=== PATIENT | male | born 1970 | race American Indian/Alaskan Native ===

== ENCOUNTER 2021-03-22 09:08 | Emergency (ER) | payer OTHER ==
[2021-03-22] MEDS ORDERED: LORazepam 1 MG TAB PO ONE (10:19)
--- NOTE | 2021-03-22 10:28 | Emergency Department Report ---
HPI - General Chief Complaint: Psych Time Seen by Provider: 03/22/21 10:05 - HPI HPI: 50-year-old male with no known past medical history presents complaining of severe depression. Patient states the symptoms have been ongoing for few weeks. Gotten worse and over the past few days. He is dealing with stress stemming from his relationship with his and other personal social issues. He denies suicidal ideation or homicidal ideation. When asked to clarify why he reportedly endorsed homicidal ideation in triage, the patient stated that he simply wanted to be seen by And thought that this would get him seen sooner. He denies that he ever had any thoughts of hurting himself or others. He also denies auditory or visual hallucinations. He does however report that he feels extremely hopeless and sad. He denies any physical symptoms or complaints. ED Past Medical Hx - Past Medical History Previous Medical History?: Yes Hx Arthritis: Yes Additional medical history: Hernia - Social History Smoking Status: Current Every Day Smoker Substance Use Type: Marijuana - Medications Home Medications: Home Medications Medication Instructions Recorded Confirmed Last Taken Type FLUoxetine [PROzac] 20 mg PO QDAY 30 Days #30 capsule 03/22/21 Unknown Rx hydrOXYzine PAMOATE [Vistaril] 25 mg PO BID 30 Days #60 capsule 03/22/21 Unknown Rx traZODone [Desyrel] 50 mg PO QHS 30 Days #30 tab 03/22/21 Unknown Rx ED Review of Systems ROS: Stated complaint: NO SLEEP Other details as noted in HPI Constitutional: denies: chills, fever Eyes: denies: eye pain, vision change ENT: denies: throat pain, congestion Respiratory: denies: cough, shortness of breath Cardiovascular: denies: chest pain, palpitations Gastrointestinal: denies: abdominal pain, nausea, vomiting Genitourinary: denies: dysuria, frequency Musculoskeletal: denies: back pain, myalgia Skin: denies: rash Psychiatric: anxiety, depression. denies: auditory hallucinations, visual hallucinations, homicidal thoughts, suicidal thoughts Physical Exam - Physical Exam Vital Signs: Vital Signs 03/22/21 09:23 Temperature 98.7 F Pulse Rate 83 Respiratory 20 Rate Blood Pressure 160/107 O2 Sat by Pulse 100 Oximetry Physical Exam: GENERAL: Well developed and well nourished. No acute distress. Tearful HEENT: Normocephalic. No obvious signs of trauma. Moist mucous membranes. EYES: Extraocular movements are intact. NECK: Supple. Trachea is midline. LUNGS: Nonlabored breathing. Equal chest rise bilaterally. Clear to auscultation bilaterally. HEART/CARDIOVASCULAR: Regular rate and rhythm. No murmurs or rubs. VASCULAR: Cap refill < 2 seconds ABDOMEN: Abdomen is soft and nondistended. There is no significant tenderness, guarding or rebound. SKIN: Skin is warm and dry NEURO: Patient is awake, alert, and oriented. carpenter's assistant II-XII grossly intact. No focal deficits. Normal motor and sensory exam throughout. Normal speech. MUSCULOSKELETAL: No obvious deformities. No significant tenderness. ED Course Vital Signs 03/22/21 09:23 Temperature 98.7 F Pulse Rate 83 Respiratory 20 Rate Blood Pressure 160/107 O2 Sat by Pulse 100 Oximetry ED Medical Decision Making - Lab Data Result diagrams: 03/22/21 09:38 03/22/21 09:38 - Medical Decision Making 50-year-old male presenting with worsening anxiety and depression related to several social stressors. Patient initially stated that he had thoughts of hurting other people but later clarified that he only stated this because he wanted to be seen by a doctor faster. He denies SI/HI to me. He also denies auditory or visual hallucinations. He denies physical symptoms or complaints of any kind. He is afebrile with normal vital signs other than elevated blood pressure. We will send a full set of medical clearance labs and have the patient evaluated by the mental health/psychiatry team to determine the best disposition for this patient. Labs have resulted and the patient is medically cleared for psychiatric evaluation and placement. Patient seen and started on new meds by psych, cleared for discharge and sent home on 03/23/2021 with outpatient resources for follow up. Critical care attestation.: If time is entered above; I have spent that time in minutes in the direct care of this critically ill patient, excluding procedure time. ED Disposition Clinical Impression: Major depression, Psychosis Disposition: DC-01 TO HOME OR SELFCARE Is pt being admited?: No Condition: Stable Instructions: Major Depressive Disorder, Adult, Psychosis Additional Instructions: Professional and Agency Contacts To help [facility](03/04) [place] Crisis Line: Suicide Prevention Line: Crisis Text Line: Text START to 864007 Emergency: 911 Outpatient COMM[facility] Behavioral Health Resources: DEKALB: [facility] [address] [place], [place] [address] QUYEN: [facility] [address] [place] [address] ALICIA: [facility] - [address] [place] [address] Monday thru Monday - 8am - 5pm OMENA: [facility] Address: [address], [place] [address] AMA: [facility] Address: [address] [place] [address] Monday thru Monday- 7am-2pm [facility] Address: [address] [place] [address] Monday thru Monday: 8:30AM-5PM Prescriptions: traZODone [Desyrel] 50 mg PO QHS 30 Days #30 tab FLUoxetine [PROzac] 20 mg PO QDAY 30 Days #30 capsule hydrOXYzine PAMOATE [Vistaril] 25 mg PO BID 30 Days #60 capsule Referrals: [facility] [Outside] - 3-5 Days [facility]IMARY [facility], [Primary Care Provider] - 3-5 Days
[2021-03-22 10:32] LABS: Basophils % (Auto) 0.6 % (0.0-1.8); Eosinophils # (Auto) 0.1 K/mm3 (0.0-0.4); Eosinophils % (Auto) 0.9 % (0.0-4.3); Hematocrit 45.1 % (35.5-45.6); Hemoglobin 14.6 gm/dl (11.8-15.2); Lymphocytes # (Auto) 1.9 K/mm3 (1.2-5.4); Lymphocytes % (Auto) 25.3 % (13.4-35.0); Mean Corpuscular HGB Conc 32 % (32-34); Mean Corpuscular Volume 86 fl (84-94); Monocytes # (Auto) 0.6 K/mm3 (0.0-0.8); Monocytes % (Auto) 7.6 % (0.0-7.3); Platelet Count 228 K/mm3 (140-440); Red Blood Count 5.24 M/mm3 (3.65-5.03); Red Cell Distribution Width 14.1 % (13.2-15.2)
--- NOTE | 2021-03-22 11:23 | Consultation ---
History of Present Illness - Reason for Consult Consult date: 03/22/21 Reason for consult: suicidal ideation - History of Present Psychiatric Illness Per Ed Note: 50-year-old male with no known past medical history presents complaining of severe depression. Patient states the symptoms have been ongoing for few weeks. Gotten worse and over the past few days. He is dealing with stress stemming from his relationship with his and other personal social issues. He denies suicidal ideation or homicidal ideation. When asked to clarify why he reportedly endorsed homicidal ideation in triage, the patient stated that he simply wanted to be seen by And thought that this would get him seen sooner. He denies that he ever had any thoughts of hurting himself or others. He also denies auditory or visual hallucinations. He does however report that he feels extremely hopeless and sad. He denies any physical symptoms or complaints. Travon Lee is a 50 year old male, disabled with no prior psychiatric diagnosis presents to the ED for severe depression. In my interview with the patient, he was tearful. The patient reports that he has being depressed for a several years now. He reports symptoms as being sad most of the time, anger, irritability, being overwhelmed and hopelessness. The patient reports recent stressors as issues " She has always cheated on me and ripping me off. I just want to get out of the marriage." Patient reports he smokes marijuana everyday to cope with stress. Patient denies any current suicidal homicidal ideation, when asked if he previously endorsed HI he states " I said that so I can see a doctor, I can't do this by myself I need help." The patient denies any hallucinations. PAST PSYCHIATRIC HISTORY: Diagnoses: Denies Suicide attempts or Self-harm behavior: Denies Prior psychiatric hospitalizations: Denies Substance Abuse history: Denies Previous psychiatric medications tried: Denies Outpatient treatment: Denies PAST MEDICAL HISTORY: None reported or document Family Psychiatric History: None reported or documented SOCIAL HISTORY Marital Status: Living Arrangements: Lives with Employment Status: Disabled Access to guns/weapons: Denies Education: 6 years college History of Abuse: Denies Legal History: Denies REVIEW OF SYSTEMS Constitutional: Negative for weight loss ENT: Negative for stridor Respiratory: Negative for cough or hemoptysis All other systems reviewed and are negative MENTAL STATUS EXAMINATION General Appearance and Behavior: Age appropriate, wearing appropriate clothes, cooperative, polite with questioning, fair eye contact, calm Cooperation: cooperative Psychomotor Behavior: Psychomotor normal Mood: "Depressed" Affect and affective range: congruent with stated mood Thought Process: goal directed Thought Content: Denies SI Speech: Normal volume, Regular rate and rhythm Suicidal Ideation: Denies Homicidal Ideation: Denies hallucination: Denies Delusions: None elicited Impulse Control: Intact Insight and Judgment: Limited Memory: Intact Attention:Distractible Orientation: Alert and oriented Diagnoses: Major depressive Disorder, Single episode without psychotic features- 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 Please contact with any questions and/or concerns. Thank you for the consult. Case staffed with Dr. Boyd Medications and Allergies Allergies Allergy/AdvReac Type Severity Reaction Status Date / Time No Known Allergies Allergy Unverified 03/22/21 09:26 Mental Status Exam - Vital signs Last Vital Signs Temp 98.7 F 03/22/21 09:23 Pulse 83 03/22/21 09:23 Resp 20 03/22/21 09:23 BP 160/107 03/22/21 09:23 Pulse Ox 100 03/22/21 09:23 Results Result Diagrams: 03/22/21 09:38 Abnormal lab results 03/22/21 03/22/21 03/22/21 Range/Units 09:38 09:38 09:38 RBC 5.24 H (3.65-5.03) M/mm3 Desha % (Auto) 7.6 H (0.0-7.3) % Salicylates < 0.3 L (2.8-20.0) mg/dL Acetaminophen 5.0 L (10.0-30.0) ug/mL All other labs normal.
[2021-03-22 11:34] LABS: Alanine Aminotransferase 13 units/L (7-56); Albumin 4.5 g/dL (3.9-5); BUN/Creatinine Ratio 15; Blood Urea Nitrogen 16 mg/dL (9-20); Calcium 9.3 mg/dL (8.4-10.2); Hemolysis Index 4
[2021-03-22] MEDS: FLUoxetine 20 MG CAP PO SCH (13:00)
[2021-03-22] MEDS: hydrOXYzine PAMOATE 25 MG CAP PO SCH ×2 (13:00→22:36)
[2021-03-22 13:24] LABS: Amphetamine Screen,Urine PRESUMPTIVE NEGATIVE; Benzodiazepines Screen,Urine PRESUMPTIVE NEGATIVE; Bilirubin,Urine NEG (Negative); Blood,Urine SM (Negative); Cannabinoid Screen,Urine PRESUMPTIVE POSITIVE; Cocaine Screen,Urine PRESUMPTIVE NEGATIVE; Color,Urine Yellow (Yellow); Methadone Screen,Urine PRESUMPTIVE NEGATIVE; Mucus,Urine FEW /HPF; Opiate Screen,Urine PRESUMPTIVE NEGATIVE; Protein,Urine <15 mg/dL mg/dL (Negative); Urobilinogen,Urine < 2.0 mg/dL (<2.0)
[2021-03-22] MEDS ORDERED: traZODone 50 MG TAB PO SCH (22:00)
[2021-03-23 09:21] VITALS: BP 127/77
--- NOTE | 2021-03-23 09:26 | Progress Note ---
Subjective - Reason for Consult Consult date: 03/23/21 Reason for consult: Psych evaluation - Chief Complaint Chief complaint: The patient was seen this morning. He reports feeling a lot better, states depression is improving. He states mood as "calm." The patient denies any current suicidal/homicidal ideation and denies hallucinations. Per nurse, the patient had a quiet night. No complain. REVIEW OF SYSTEMS Constitutional: Negative for weight loss ENT: Negative for stridor Respiratory: Negative for cough or hemoptysis All other systems reviewed and are negative MENTAL STATUS EXAMINATION General Appearance and Behavior: Age appropriate, wearing appropriate clothes, cooperative, polite with questioning, fair eye contact, calm Cooperation: cooperative Psychomotor Behavior: Psychomotor normal Mood: "calm" Affect and affective range: congruent with stated mood Thought Process: goal directed Thought Content: Denies SI Speech: Normal volume, Regular rate and rhythm Suicidal Ideation: Denies Homicidal Ideation: Denies hallucination: Denies Delusions: None elicited Impulse Control: Intact Insight and Judgment: Limited Memory: Intact Attention:Distractible Orientation: Alert and oriented Diagnoses: Major depressive Disorder, 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 BIG 6 DEALER: Per medical team DISPOSITION: Do not recommend acute psychiatric inpatient treatment Will sign off. The patient understands that if suicidal ideas, homicidal ideas, or any endangering thoughts/behaviors arise, they should immediately seek emergent assistance including but not limited to crisis hotline and emergency room. Follow up with psychiatric out-patient within 7 days or sooner. Please contact with any questions and/or concerns. Case staffed with Dr. Boyd Medications and Allergies Mental Status Exam - Vital signs Last Vital Signs Temp 97.7 F 03/23/21 01:28 Pulse 83 03/23/21 07:53 Resp 16 03/23/21 01:28 BP 127/77 03/23/21 07:53 Pulse Ox 100 03/23/21 07:53
[2021-03-23] MEDS: hydrOXYzine PAMOATE 25 MG CAP PO SCH (10:25)
[2021-03-23] MEDS: FLUoxetine 20 MG CAP PO SCH (10:25)
== END 2021-03-23 11:00 | disposition home or self-care (01) ==
LOC: EEVIPCON 09:08 → ED 09:08
DX: F32.9 Major depressive disorder, single episode, unspecified (principal); F29 Unspecified psychosis not due to a substance or known physiological condition; G47.00 Insomnia, unspecified; F41.9 Anxiety disorder, unspecified; M19.90 Unspecified osteoarthritis, unspecified site; F17.290 Nicotine dependence, other tobacco product, uncomplicated; Z20.822 Contact with and (suspected) exposure to COVID-19
CPT/HCPCS: 36415; 80053; 80307; 81001; 85025; 99284; Q0177; U0003; 80320; G0480

== ENCOUNTER 2022-02-16 10:30 | Emergency (ER) | payer OTHER ==
[2022-02-16] MEDS ORDERED: FAMOTIDINE 20 MG/2 ML INJ IV ONE (11:44)
[2022-02-16] MEDS ORDERED: SODIUM CHLORIDE 0.9% 1000 ML 1,000 ML IV ONE (11:44)
[2022-02-16] MEDS ORDERED: predniSONE 20 MG TAB PO ONE (11:44)
[2022-02-16] MEDS ORDERED: MORPHINE 4 MG/1 ML INJ IV ONE (11:44)
[2022-02-16] MEDS ORDERED: ONDANSETRON 4 MG/2 ML INJ IV ONE (11:44)
--- NOTE | 2022-02-16 11:49 | Emergency Department Report ---
ED Abdominal Pain HPI - General Chief Complaint: Abdominal Pain Stated Complaint: ABD PAIN Time Seen by Provider: 02/16/22 11:30 Source: patient, EMS Mode of arrival: Stretcher Limitations: No Limitations - History of Present Illness Initial Comments: Patient is a 51-year-old male here with complaint of abdominal pain and left leg pain and buttock pain. Patient reports that he has had a history of gastritis in the past he denies any other past medical history but think he has "radiculopathy arthritis" patient states that his abdominal pain has resolved but earlier he noted left lower quadrant and periumbilical pain. He had some nausea and dry heaves but denies vomiting he also states he had a loose stools after not being able to have a bowel movement he denies any fevers chills. Patient denies any lumbar spinal pain he denies any saddle anesthesia he does not currently have any numbness tingling or weakness in his extremities. - Related Data Previous Rx's Medication Instructions Recorded Last Taken Type FLUoxetine [PROzac] 20 mg PO QDAY 30 Days #30 capsule 03/22/21 Unknown Rx hydrOXYzine PAMOATE [Vistaril] 25 mg PO BID 30 Days #60 capsule 03/22/21 Unknown Rx traZODone [Desyrel] 50 mg PO QHS 30 Days #30 tab 03/22/21 Unknown Rx Doxycycline Hyclate [Doxycycline 100 mg PO Q12HR 7 Days #14 tab 02/16/22 Unknown Rx Hyclate TAB] Famotidine [Pepcid] 40 mg PO QHS 30 Days #30 02/16/22 Unknown Rx Tamsulosin [Flomax] 0.4 mg PO QDAY 14 Days #14 cap 02/16/22 Unknown Rx predniSONE [Deltasone] 50 mg PO QDAY 3 Days #3 tab 02/16/22 Unknown Rx Allergies Allergy/AdvReac Type Severity Reaction Status Date / Time No Known Allergies Allergy Verified 02/16/22 10:36 ED Review of Systems ROS: Stated complaint: ABD PAIN Other details as noted in HPI Constitutional: denies: chills, fever Eyes: denies: eye pain, eye discharge, vision change ENT: denies: ear pain, throat pain Respiratory: denies: cough, shortness of breath, wheezing Cardiovascular: denies: chest pain, palpitations Endocrine: no symptoms reported Gastrointestinal: abdominal pain, nausea, diarrhea, constipation. denies: vomiting Genitourinary: denies: urgency, dysuria Musculoskeletal: denies: back pain, joint swelling, arthralgia Skin: denies: rash, lesions Neurological: denies: headache, weakness, numbness, paresthesias Psychiatric: denies: anxiety, depression Hematological/Lymphatic: denies: easy bleeding, easy bruising ED Past Medical Hx - Past Medical History Hx Arthritis: Yes Hx Tuberculosis: No Additional medical history: Hernia, gastitis - Social History Smoking Status: Current Every Day Smoker Substance Use Type: None - Medications Home Medications: Home Medications Medication Instructions Recorded Confirmed Last Taken Type FLUoxetine [PROzac] 20 mg PO QDAY 30 Days #30 capsule 03/22/21 Unknown Rx hydrOXYzine PAMOATE [Vistaril] 25 mg PO BID 30 Days #60 capsule 03/22/21 Unknown Rx traZODone [Desyrel] 50 mg PO QHS 30 Days #30 tab 03/22/21 Unknown Rx Doxycycline Hyclate [Doxycycline 100 mg PO Q12HR 7 Days #14 tab 02/16/22 Unknown Rx Hyclate TAB] Famotidine [Pepcid] 40 mg PO QHS 30 Days #30 02/16/22 Unknown Rx Tamsulosin [Flomax] 0.4 mg PO QDAY 14 Days #14 cap 02/16/22 Unknown Rx predniSONE [Deltasone] 50 mg PO QDAY 3 Days #3 tab 02/16/22 Unknown Rx ED Physical Exam - General Limitations: No Limitations General appearance: alert, in no apparent distress - Head Head exam: Present: atraumatic, normocephalic - Eye Eye exam: Present: normal appearance - ENT ENT exam: Present: mucous membranes moist - Neck Neck exam: Present: normal inspection - Respiratory Respiratory exam: Present: normal lung sounds bilaterally. Absent: respiratory distress - Cardiovascular Cardiovascular Exam: Present: regular rate, normal rhythm. Absent: systolic murmur, diastolic murmur, rubs, gallop - GI/Abdominal GI/Abdominal exam: Present: soft, tenderness (periumbilical), normal bowel sounds - Rectal Rectal exam: Present: deferred - Extremities Exam Extremities exam: Present: normal inspection - Back Exam Back exam: Present: normal inspection. Absent: CVA tenderness (R), CVA tenderness (L), muscle spasm, paraspinal tenderness, vertebral tenderness - Neurological Exam Neurological exam: Present: alert, oriented X3, normal gait. Absent: motor sensory deficit - Psychiatric Psychiatric exam: Present: normal affect, normal mood - Skin Skin exam: Present: warm, dry, intact, normal color. Absent: rash ED Course Vital Signs 02/16/22 02/16/22 02/16/22 10:34 10:59 11:01 Temperature 97.5 F L Pulse Rate 87 59 L Respiratory 17 Rate Blood Pressure Blood Pressure 152/80 [Left] O2 Sat by Pulse 98 Oximetry 02/16/22 02/16/22 02/16/22 11:02 12:06 12:07 Temperature Pulse Rate 69 69 Respiratory 15 15 15 Rate Blood Pressure 154/86 Blood Pressure 154/86 [Left] O2 Sat by Pulse 100 100 100 Oximetry - Reevaluation(s) Reevaluation #1: 02/16/22 13:39 Patient's labs are notable for hematuria. I discussed with patient and discussed the possibility that he may have a renal stone. Patient is offered a CT scan of the abdomen pelvis which she does not wish to stay for. He request that he be treated for possible STIs and received medication for possible renal stone. I will also provide patient with referrals to neurosurgery, GI, primary care. ED Medical Decision Making - Lab Data Result diagrams: 02/16/22 12:36 02/16/22 12:36 - EKG Data -: EKG Interpreted by Me EKG shows normal: sinus rhythm Rate: normal - EKG Data When compared to previous EKG there are: previous EKG unavailable Interpretation: normal EKG - Medical Decision Making Patient is a 51-year-old male with reported history of gastritis here with complaint of abdominal pain as well as likely left lower extremity sciatica. Patient currently does not have any abdominal pain but does note that his left leg hurts. Differential includes gastritis, diverticulitis, sciatica. I offered patient CT imaging of the abdomen and pelvis but at this time patient is refusing. He does request pain control. Plan to give Pepcid, pain control, steroids and will reassess. If patient feels improved and desires discharge will discharge with close follow-up with GI and primary care. Critical care attestation.: If time is entered above; I have spent that time in minutes in the direct care of this critically ill patient, excluding procedure time. ED Disposition Clinical Impression: Sciatica, Gastritis, Abdominal pain, Hematuria Disposition: 01 HOME / SELF CARE / HOMELESS Is pt being admited?: No Does the pt Need Aspirin: No Condition: Stable Instructions: Gastritis, Adult, [id number], Abdominal Pain, Adult, [id number], Sciatica, [id number], Hematuria, Adult Prescriptions: Famotidine [Pepcid] 40 mg PO QHS 30 Days #30 predniSONE [Deltasone] 50 mg PO QDAY 3 Days #3 tab Doxycycline Hyclate [Doxycycline Hyclate TAB] 100 mg PO Q12HR 7 Days #14 tab Tamsulosin [Flomax] 0.4 mg PO QDAY 14 Days #14 cap Referrals: [facility] [Other] - 3-5 Days TAMIKO ROGERS MD [Staff Physician] - 3-5 Days (If you need a primary care doctor) SONIDO HARDIN MD [Staff Physician] - as needed (If you need a grinder) JUAN SULLIVAN MD [Staff Physician] - as needed (For your blood in urine and possible kidney stones) JARON MALDONADO II, MD [Staff Physician] - as needed (Neurosurgery as needed for your sciatica) Time of Disposition: 13:52
[2022-02-16 12:04] LABS: Bilirubin,Urine Negative (Negative); Blood,Urine Large (Negative); Color,Urine Yellow (Yellow)
[2022-02-16 12:05] LABS: Protein,Urine <15 mg/dL mg/dL (Negative)
[2022-02-16 12:07] VITALS: BP 154/86
[2022-02-16 12:13] LABS: Mucus,Urine FEW /HPF
[2022-02-16 12:57] LABS: Basophils # (Auto) 0.1 K/mm3 (0.0-0.1); Basophils % (Auto) 0.5 % (0.0-1.8); Eosinophils % (Auto) 0.3 % (0.0-4.3); Hematocrit 43.8 % (35.5-45.6); Hemoglobin 13.9 gm/dl (11.8-15.2); Lymphocytes # (Auto) 1.3 K/mm3 (1.2-5.4); Lymphocytes % (Auto) 10.9 % (13.4-35.0); Mean Corpuscular HGB Conc 32 % (32-34); Mean Corpuscular Volume 86 fl (84-94); Monocytes # (Auto) 0.9 K/mm3 (0.0-0.8); Monocytes % (Auto) 7.9 % (0.0-7.3); Platelet Count 222 K/mm3 (140-440); Red Blood Count 5.11 M/mm3 (3.65-5.03); Red Cell Distribution Width 14.1 % (13.2-15.2)
[2022-02-16 13:18] LABS: Alanine Aminotransferase 19 units/L (7-56); Albumin 4.7 g/dL (3.9-5); BUN/Creatinine Ratio 12; Bilirubin,Direct < 0.2 mg/dL (0-0.2); Blood Urea Nitrogen 14 mg/dL (9-20); Calcium 9.6 mg/dL (8.4-10.2); Hemolysis Index 14
[2022-02-16] MEDS ORDERED: LIDOCAINE-MPF (1%) 10 MG/1 ML VIAL 5 ML INFILTRATI ONE (13:35)
--- NOTE | 2022-02-17 12:10 | Electrocardiograph Report ---
[facility] Test Date: 2022-02-16 Test Time: 11:39:11 Pat Name: BYRON VILLARREAL Department: Room: Gender: M Automobile Accessories Salesperson: GILES : 1970 Requested By: SANDRA DANIELSON Order Number: [id number] Reading MD: Tony Mora Measurements Intervals [place] Rate: 61 P: 38 CO: 161 QRS: 76 QRSD: 77 T: 60 QT: 405 QTc: 408 Interpretive Statements Sinus rhythm No previous ECG available for comparison Electronically Signed On 02-17-2022 12:10:00 EDT by Tony Mora
== END 2022-02-16 14:12 | disposition home or self-care (01) ==
LOC: ED 10:30
DX: M54.30 Sciatica, unspecified side (principal); K29.70 Gastritis, unspecified, without bleeding; R10.9 Unspecified abdominal pain; R31.9 Hematuria, unspecified; F17.200 Nicotine dependence, unspecified, uncomplicated
CPT/HCPCS: 36415; 80048; 80076; 81001; 82962; 83690; 84484; 85025; 93005; 96361; 96372; 96374; 96375; 99284; J0696; J2270; J2405; J3490; J7030

== ENCOUNTER 2022-04-22 08:14 | Emergency (ER) | payer OTHER ==
[2022-04-22 08:21] VITALS: BP 147/100
--- NOTE | 2022-04-22 09:43 | XRay Report ---
RIGHT FINGERS 3 VIEWS INDICATION: possible fracture on index finger. COMPARISON: None. IMPRESSION: 3 views of the right index finger are presented. No acute osseous abnormality or joint pathology is detected. The soft tissues are unremarkable. Signer Name: Crescencio Pereira Jr, MD Signed: 04/22/2022 9:39 AM Workstation Name: [id number]
== END 2022-04-22 23:00 | disposition left against medical advice (07) ==
LOC: ED 08:14
DX: S63.259A Unspecified dislocation of unspecified finger, initial encounter (principal); Z53.21 Procedure and treatment not carried out due to patient leaving prior to being seen by health care provider; X58.XXXA Exposure to other specified factors, initial encounter; Y93.89 Activity, other specified; Y92.89 Other specified places as the place of occurrence of the external cause; Y99.8 Other external cause status

== ENCOUNTER 2022-04-23 10:39 | Emergency (ER) | payer OTHER ==
[2022-04-23 11:05] VITALS: BP 164/93
== END 2022-04-24 11:19 | disposition left against medical advice (07) ==
LOC: ED 10:39
DX: S60.940A Unspecified superficial injury of right index finger, initial encounter (principal); Z53.21 Procedure and treatment not carried out due to patient leaving prior to being seen by health care provider; X58.XXXA Exposure to other specified factors, initial encounter; Y93.89 Activity, other specified; Y92.89 Other specified places as the place of occurrence of the external cause; Y99.8 Other external cause status

== ENCOUNTER 2022-04-26 06:27 | Emergency (ER) | payer OTHER ==
[2022-04-26 07:15] VITALS: BP 158/98
--- NOTE | 2022-04-26 10:26 | XRay Report ---
Right hand-3 views INDICATION: can not extend r index finger at PIP. COMPARISON: Right index finger series-3 views IMPRESSION: Questionable cortical irregularity along the posterior aspect of the index metacarpal he ad best seen on the lateral view with mild overlying soft tissue swelling. The index finger is in par tial flexion on all of the images. No significant DJD. Consider follow-up MRI for further evaluation to exclude underlying tendon or ligament injury. Signer Name: Yariel Queen MD Signed: 04/26/2022 10:22 AM Workstation Name: [email or web address]
--- NOTE | 2022-04-26 10:33 | Emergency Department Report ---
ED Recheck HPI - General Chief Complaint: Extremity Injury, Upper Stated Complaint: DISLOCATED FINGER Time Seen by Provider: 04/26/22 08:37 Source: patient Mode of arrival: Ambulatory Limitations: No Limitations - Related Data Previous Rx's Medication Instructions Recorded Last Taken Type FLUoxetine [PROzac] 20 mg PO QDAY 30 Days #30 capsule 03/22/21 Unknown Rx hydrOXYzine PAMOATE [Vistaril] 25 mg PO BID 30 Days #60 capsule 03/22/21 Unknown Rx traZODone [Desyrel] 50 mg PO QHS 30 Days #30 tab 03/22/21 Unknown Rx Doxycycline Hyclate [Doxycycline 100 mg PO Q12HR 7 Days #14 tab 02/16/22 Unknown Rx Hyclate TAB] Famotidine [Pepcid] 40 mg PO QHS 30 Days #30 02/16/22 Unknown Rx Tamsulosin [Flomax] 0.4 mg PO QDAY 14 Days #14 cap 02/16/22 Unknown Rx predniSONE [Deltasone] 50 mg PO QDAY 3 Days #3 tab 02/16/22 Unknown Rx Allergies Allergy/AdvReac Type Severity Reaction Status Date / Time No Known Allergies Allergy Verified 02/16/22 10:36 ED Review of Systems ROS: Stated complaint: DISLOCATED FINGER Other details as noted in HPI Comment: All other systems reviewed and negative ED Past Medical Hx - Past Medical History Previous Medical History?: Yes Hx Hypertension: Yes Hx Arthritis: Yes Hx Tuberculosis: No Additional medical history: Hernia, gastitis, Right finger injury - Surgical History Past Surgical History?: Yes Additional Surgical History: hernia repair - Family History Family history: no significant - Social History Smoking Status: Current Every Day Smoker Substance Use Type: Alcohol - Medications Home Medications: Home Medications Medication Instructions Recorded Confirmed Last Taken Type FLUoxetine [PROzac] 20 mg PO QDAY 30 Days #30 capsule 03/22/21 Unknown Rx hydrOXYzine PAMOATE [Vistaril] 25 mg PO BID 30 Days #60 capsule 03/22/21 Unknown Rx traZODone [Desyrel] 50 mg PO QHS 30 Days #30 tab 03/22/21 Unknown Rx Doxycycline Hyclate [Doxycycline 100 mg PO Q12HR 7 Days #14 tab 02/16/22 Unknown Rx Hyclate TAB] Famotidine [Pepcid] 40 mg PO QHS 30 Days #30 02/16/22 Unknown Rx Tamsulosin [Flomax] 0.4 mg PO QDAY 14 Days #14 cap 02/16/22 Unknown Rx predniSONE [Deltasone] 50 mg PO QDAY 3 Days #3 tab 02/16/22 Unknown Rx ED Physical Exam - General Limitations: No Limitations General appearance: alert, in no apparent distress - Head Head exam: Present: atraumatic, normocephalic - Eye Eye exam: Present: normal appearance - ENT ENT exam: Present: mucous membranes moist - Neck Neck exam: Present: normal inspection - Respiratory Respiratory exam: Present: normal lung sounds bilaterally. Absent: respiratory distress - Cardiovascular Cardiovascular Exam: Present: regular rate, normal rhythm. Absent: systolic murmur, diastolic murmur, rubs, gallop - GI/Abdominal GI/Abdominal exam: Present: soft, normal bowel sounds - Rectal Rectal exam: Present: deferred - Extremities Exam Extremities exam: Present: normal inspection - Back Exam Back exam: Present: normal inspection - Neurological Exam Neurological exam: Present: alert, oriented X3 - Psychiatric Psychiatric exam: Present: normal affect, normal mood - Skin Skin exam: Present: warm, dry, intact, normal color. Absent: rash ED Course Vital Signs 04/26/22 07:10 Temperature 98.7 F Pulse Rate 61 Respiratory 14 Rate Blood Pressure 158/98 O2 Sat by Pulse 100 Oximetry ED Recheck MDM - Core Measures Measure Exclusions: not indicated Critical care attestation.: If time is entered above; I have spent that time in minutes in the direct care of this critically ill patient, excluding procedure time. ED Disposition Clinical Impression: Finger injury Disposition: 01 HOME / SELF CARE / HOMELESS Is pt being admited?: No Does the pt Need Aspirin: No Condition: Stable Additional Instructions: FOLLOW UP WITH ORTHO MD/HAND SPECIALIST REFERRAL BELOW Referrals: ANSHUL RUSH MD [Staff Physician] - 3-5 Days Forms: Work/School Release Form(ED) Time of Disposition: 10:31
== END 2022-04-26 17:10 | disposition home or self-care (01) ==
LOC: ED 06:27
DX: S69.90XA Unspecified injury of unspecified wrist, hand and finger(s), initial encounter (principal); X58.XXXA Exposure to other specified factors, initial encounter; Y93.89 Activity, other specified; Y92.89 Other specified places as the place of occurrence of the external cause; Y99.8 Other external cause status
CPT/HCPCS: 99283